=== PATIENT | female | born 1980 | race Caucasian/White ===

== ENCOUNTER 2022-07-05 15:37 | Emergency (ER) | payer OTHER ==
[2022-07-05] MEDS ORDERED: Tranexamic Acid 1,000 MG in Sodium Chloride 0.9% 50 ML IV ONE (16:57)
[2022-07-05] MEDS: Sodium Chloride 0.9% 1,000 ML IV ONE (17:05)
[2022-07-05] MEDS: Sodium Chloride 0.9% 10 ML Syringe FLUSH PRN ×2 (17:06→19:02)
[2022-07-05] MEDS: Tranexamic Acid 1,000 MG in Sodium Chloride 0.9% 50 ML IV ONE (17:48)
== END 2022-07-05 19:41 | disposition home or self-care (01) ==
LOC: JP.ED 15:37
DX: N93.9 Abnormal uterine and vaginal bleeding, unspecified (principal); D25.9 Leiomyoma of uterus, unspecified; Z79.899 Other long term (current) drug therapy
CPT/HCPCS: 36415; 80048; 84703; 85025; 85730; 96361; 96365; 99284; J3490; J7030